=== PATIENT | male | born 1960 | race Caucasian/White ===

== ENCOUNTER 2018-10-29 10:14 | Emergency (ER) | payer BC | END 2018-10-29 10:52 | disposition home or self-care (01) | LOC: NAV ERS 10:14 | DX: S61.212A Laceration without foreign body of right middle finger without damage to nail, initial encounter (principal); E78.5 Hyperlipidemia, unspecified; I10 Essential (primary) hypertension; Z79.899 Other long term (current) drug therapy; W26.8XXA Contact with other sharp object(s), not elsewhere classified, initial encounter | CPT/HCPCS: 12001 ==

== ENCOUNTER 2020-02-22 20:01 | Emergency (ER) | payer BC | END 2020-02-22 20:36 | disposition home or self-care (01) | LOC: NAV ERS 20:01 | DX: S50.861A Insect bite (nonvenomous) of right forearm, initial encounter (principal); S50.361A Insect bite (nonvenomous) of right elbow, initial encounter; E78.5 Hyperlipidemia, unspecified; I10 Essential (primary) hypertension; Z79.899 Other long term (current) drug therapy; W57.XXXA Bitten or stung by nonvenomous insect and other nonvenomous arthropods, initial encounter | CPT/HCPCS: 99282 ==